=== PATIENT | female | born 1985 | race Two or more races ===

== ENCOUNTER 2024-03-31 17:25 | Emergency (ER) | payer MEDICAID, SELFPAY ==
[2024-03-31 17:34] VITALS: BP 153/92; PULSE 90; RESP 18; TEMP 36.3; O2SAT 98; BMI 45.5
--- NOTE | 2024-03-31 17:38 | XR_ITS ---
Examination: CT cervical spine without contrast 2-D sagittal reconstructions 2-D coronal reconstructions 3-D reconstructions. Exam date and time:March 31, 2024 1949 hrs. Indications: Patient fell today with injury to the neck, neck pain CTDI:vol (mGy) 9.68 DLP: (mGycm) 201 Technique: Multiple 2 mm axial sections of the cervical spine have been obtained. The coronal and sagittal reconstructions have been obtained. 3-D reconstructions have been obtained. Low dose protocols were performed. One or more of the following dose reduction techniques were used; automated exposure control, adjustment of the mA and/or KV according to patient size, use of iterative reconstruction technique. 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
--- NOTE | 2024-03-31 17:38 | XR_ITS ---
Examination: CT brain head without contrast. 2-D sagittal coronal reconstructions Date and time of exam:March 31, 2024 1949 hrs. Indications: Patient fell today with injury to the head, head pain Comparison: February 01, 2023 CTDI: vol (mGy):51.8 DLP: (mGycm):950 Technique: Multiple CT axial sections of the brain have been obtained, 5 mm slice thickness. Contrast has not been administered. 2-D sagittal, coronal reconstructions have been obtained Low dose protocols were performed. One or more of the following dose reduction techniques were used; automated exposure control, adjustment of the mA and/or KV according to patient size, use of iterative reconstruction technique. Findings: No significant ventricular enlargement. Intra-axial or extra-axial hemorrhage density is not seen. No mass effect or midline shift Basal cisterns are not remarkable. Fourth ventricle is midline. Cranial vault intact. Impression: Negative for acute hemorrhage, mass effect or midline shift
--- NOTE | 2024-03-31 17:38 | PD.EDRME ---
Rapid Medical Screening Exam RME Arrival date/time: 03/31/24 17:25 38-year-old female presents the emergency department today stating she fell yesterday and hit the cement left side of her head patient reports head and neck pain at this time Chief Complaint: Fall Time Seen by Provider: 03/31/24 17:36 Vital signs: Vital Signs Temperature 97.4 F 03/31/24 17:34 Pulse Rate 90 03/31/24 17:34 Respiratory Rate 18 03/31/24 17:34 Blood Pressure 153/92 H 03/31/24 17:34 Pulse Oximetry (%) 98 03/31/24 17:34 Oxygen Delivery Method Room Air 03/31/24 17:34
--- NOTE | 2024-03-31 22:34 | PD.EDFALL ---
ED Fall Injury RME/HPI General Chief Complaint: Fall Stated Complaint: Fall hit her head 2 days ago Time Seen by Provider: 03/31/24 17:36 Arrival date/time: 03/31/24 17:25 RME / HPI RME / HPI Narrative: 38-year-old female presents the emergency department today stating she fell from a 1 step stool yesterday and hit the cement left side of her head patient reports head and neck pain at this time. Severity of symptoms mild. Denies any LOC. Denies any other complaints. Related Data Previous Rx's ?Medication ?Instructions ?Recorded cyclobenzaprine 10 mg tablet 10 mg PO HS #10 tabs 02/01/23 meclizine 25 mg tablet 25 mg PO BID PRN dizziness #14 tabs 02/01/23 Allergies Allergy/AdvReac Type Severity Reaction Status Date / Time No Known Allergies Allergy Verified 02/01/23 12:41 Review of Systems Review of Systems Narrative Review of Systems: Review of system reviewed and within normal limits except mentioned in HPI ED Exam Narrative Physical exam: VITAL SIGNS: Reviewed. GENERAL APPEARANCE: Alert and interactive, follows commands, no acute distress, HEAD AND FACE: Tenderness to the left scalp temporal area ENT: PERRL, pink conjunctivitis, eyelid no trauma, Mucous membrane moist. NECK: Supple, nontender, no nuchal rigidity. CHEST: No tenderness, no crepitus, no paradoxical movement, no retractions. LUNGS: Clear, well ventilated, symmetric, no rales, no wheezing, no ronchi, no stridor, good breath sounds bilaterally. HEART: Regular rate, regular rhythm, no murmur, no gallops. ABDOMEN: Soft, positive bowel sounds, nondistended, no guarding, nontender, no rebound, no masses, RECTAL: Deferred. GENITAL: Deferred. NEUROLOGICAL: Gross motor function intact sensory function intact, Appropriate for age. MUSCULOSKELETAL: low back nontender, full range of motion. EXTREMITIES: Nontender, full range of motion. SKIN: Color pink, dry, no rash, no lacerations, no abrasions, no contusions. LYMPHATICS: Deferred. Course Quality Measures none Orders Category Date Time Status CT cervical spine wo con Stat Exams 03/31/24 17:[address] head/brain wo con Stat Exams 03/31/24 17:38 Completed Vital Signs Vital signs: Vital Signs Temperature 97.4 F 03/31/24 17:34 Pulse Rate 90 03/31/24 17:34 Respiratory Rate 18 03/31/24 17:34 Blood Pressure 153/92 H 03/31/24 17:34 Pulse Oximetry (%) 98 03/31/24 17:34 Oxygen Delivery Method Room Air 03/31/24 17:34 Fall MDM Narrative MDM Narrative:: CT scan of the neck came back unremarkable. CT scan of the head came back unremarkable. Results discussed with the patient. Patient data External records reviewed:: None Clinical information provided by:: patient Social determinants that could affect healthcare access:: none Patient has the following chronic illnesses:: None How is presenting disease/condition affected by chronic disease/condition?: no chronic disease Evaluation data The following diagnostics were reviewed and interpreted by me:: radiology exam(s) Lab and/or radiology exams considered but not ordered:: None Interpretation Summary: CT scan of the head came back unremarkable. CT scan of the neck came back unremarkable. Medications / Prescriptions Medications or Prescriptions considered but not ordered:: None Medication administrations:: None Consultations Consultation(s) initiated? (list below): No Diagnosis Fall Differential Diagnosis: other (Scalp contusion, status post fall, intracranial bleed) Most likely diagnosis given after review of the tests above:: Scalp contusion, left temporal area status post fall Admission Indicated Admission indicated?: not indicated Explain why admission is indicated or not indicated:: Stable discharge Admission Request Was there a request for admission?: No Disposition Plan Disposition Plan: Discharge Discharge Attestation Discharge Attestation: The patient was given an opportunity to ask questions and understood the discharge instructions. Discharge instructions specifically effects, indications for sooner follow up or return to the emergency department, and the expected course of current diagnosis. Patient condition: Stable Discharge Plan Plan Patient Disposition: HOME (Self Care) Disposition Comment: stable Prescriptions/Referrals Prescriptions/Med Rec: No Action meclizine 25 mg tablet 25 mg PO BID PRN (Reason: dizziness) Qty: 14 0RF cyclobenzaprine 10 mg tablet 10 mg PO HS Qty: 10 0RF Referrals: Randolph Piña MD [Primary Care Provider] - In 1 week Problem List Clinical Impression: Fall, Contusion of scalp Patient/Caregiver Discharge Instructions Discharge Activity: activity as tolerated Education Materials: ED Scalp Contusion Additional Instructions: Thank you for the opportunity for serving you today. You are stable for discharged . You are advised to: Follow-up with your PCP in 1 to 2 days Return to ED for worsening of symptoms Increase oral fluids Take over the counter Tylenol or Motrin as needed Print Language: Omani Stand Alone Forms: Mandy Award Info., Patient Portal Info Letter PA/CAPPER MACHINE OPERATOR Supervising Physician MINDY/CAPPER MACHINE OPERATOR Supervising Physician: MD Randi
== END 2024-03-31 22:40 | disposition home or self-care (01) ==
PROVIDERS: Emergency Provider Emergency Medicine; PCP Family Medicine
DX: S00.03XA Contusion of scalp, initial encounter (principal); S19.9XXA Unspecified injury of neck, initial encounter; W10.9XXA Fall (on) (from) unspecified stairs and steps, initial encounter
CPT/HCPCS: 70450; 72125; 99284

== ENCOUNTER 2024-06-30 16:03 | Emergency (ER) | payer MEDICAID, SELFPAY ==
[2024-06-30 16:04] VITALS: BMI 41.1
[2024-06-30 16:54] VITALS: BP 151/81; PULSE 80; RESP 18; TEMP 36.9; O2SAT 99
--- NOTE | 2024-06-30 17:02 | PD.EDRME ---
Rapid Medical Screening Exam RME Arrival date/time: 06/30/24 16:03 38-year-old female presents the emergency department with complaints of dizziness x 1 day. Patient states she feels the room spinning. I have greeted and performed a focused initial assessment of this patient. Initial appropriate labs ordered at this time. A comprehensive ED assessment and evaluation of the patient and analysis of all test and completion of medical decision making process will be conducted by additional ED provider. Chief Complaint: Dizziness Time Seen by Provider: 06/30/24 16:42 Vital signs: Vital Signs Temperature 98.5 F 06/30/24 16:54 Pulse Rate 80 06/30/24 16:54 Respiratory Rate 18 06/30/24 16:54 Blood Pressure 151/81 H 06/30/24 16:54 Pulse Oximetry (%) 99 06/30/24 16:54 Oxygen Delivery Method Room Air 06/30/24 16:54
[2024-06-30] MEDS: MECLIZINE HCL 25 MG TABLET PO (17:07)
[2024-06-30 17:37] LABS: Collection Type, Urine Clean Catch
[2024-06-30 17:39] LABS: Basophils # (Auto) 0.1 Thou/mm3 (0.0-0.2); Basophils % (Auto) 1 % (0-2.5); Eosinophils # (Auto) 0.2 Thou/mm3 (0.0-0.5); Eosinophils % (Auto) 2 % (0-10); Hematocrit 40.9 % (36.0-46.0); Hemoglobin 13.6 g/dL (12.0-16.0); Immature Granulocytes % (Auto) 0 % (0-0); Immature Granulocytes Auto 0.04 Thou/mm3 (0.00-0.00); Lymphocytes # (Auto) 3.1 Thou/mm3 (1.0-4.8); Lymphocytes % (Auto) 25 % (10-50); Mean Corpuscular HGB Conc 33.3 g/dl (31.0-37.0); Mean Corpuscular Hemoglobin 31.8 pg (25.0-35.0); Mean Corpuscular Volume 96 fL (80-100); Monocytes # (Auto) 0.5 Thou/mm3 (0.0-0.8); Monocytes % (Auto) 4 % (0-12); Neutrophils # (Auto) 8.7 Thou/mm3 (1.8-7.7); Neutrophils % (Auto) 69 % (37-80); Nucleated Red Blood Cell % 0 /100 WBC (0); Platelet Count 332 Thou/mm3 (140-440); RDW Standard Deviation 43.5 fL (36.4-46.3); Red Blood Count 4.28 Miln/mm3 (4.00-5.20); White Blood Count 12.7 Thou/mm3 (3.6-11.0)
[2024-06-30 17:43] LABS: Bilirubin,Urine Negative (Negative); Blood,Urine Negative (Negative); Clarity,Urine Clear (Clear/Hazy); Color,Urine Lt-Yellow (Lt Yel-Yel); Glucose, Urine Negative (Negative); Ketones,Urine Negative (Negative); Leukocyte Esterase,Urine Positive (Negative); Nitrite,Urine Negative (Negative); Protein,Urine Negative (Neg - Trace); RBC,Urine 1 /hpf (0-3); Specific Gravity,Urine 1.017 (1.001-1.035); Squamous Epithelial Cell,Urine 4 /hpf (0-5); Urobilinogen,Urine Negative mg/dL (0.0-1.0); WBC,Urine 4 /hpf (0-5)
[2024-06-30 17:57] LABS: Alanine Aminotransferase 35 U/L (10-49); Albumin, Serum 4.4 gm/dL (3.5-5.0); Albumin/Globulin Ratio 1.2 (1.2-2.2); Alkaline Phosphatase 108 U/L (46-116); Anion Gap 9 (7-16); Aspartate Amino Transferase 19 U/L (0-34); BUN/Creatinine Ratio 14 Ratio (12-20); Bilirubin,Total 0.4 mg/dL (0.3-1.2); Blood Urea Nitrogen 14 mg/dL (9-23); Calcium 9.6 mg/dL (8.3-10.6); Calcium (Corrected) 9.6 mg/dL (8.5-10.1); Carbon Dioxide 25.5 mMol/L (20.0-31.0); Chloride 103 mMol/L (98-107); Estimated Creatinine Clearance 93.8 mL/min (>60); Globulin 3.6 gm/dL (2.3-3.5); Glucose 109 mg/dL (74-106); Osmolality,Calculated 275 (275-295); Potassium 3.8 mMol/L (3.4-5.1); Sodium 137 mMol/L (136-145); eGFR > 60 See Note
[2024-06-30 18:00] LABS: HCG Qualitative,Urine Negative
[2024-06-30 19:44] VITALS: BP 145/98; PULSE 81; RESP 18; TEMP 36.6; O2SAT 99
--- NOTE | 2024-06-30 20:01 | EDNOTE_ITS ---
ED Dizzyness RME/HPI General Chief Complaint: Dizziness Stated Complaint: DIZZY X4HR Time Seen by Provider: 06/30/24 16:42 Arrival date/time: 06/30/24 16:03 RME / HPI RME / HPI Narrative: 38-year-old female patient came in for evaluation regarding dizziness. Onset of symptoms earlier today as dizziness, described as everything spinning, severity moderate associated with blurry vision. Patient denies any headache denies any slurring speech denies any vomiting denies any fever denies any neck pain denies any other complaints patient also. Denies any head trauma or fall. Related Data Previous Rx's ?Medication ?Instructions ?Recorded cyclobenzaprine 10 mg tablet 10 mg PO HS #10 tabs 01/10 08/31 meclizine 25 mg tablet 25 mg PO BID PRN dizziness # 14 tabs 02/01/23 Allergies Allergy/AdvReac Type Severity Reaction Status Date / Time No Known Allergies Allergy Verified 06/30/24 16:06 Review of Systems Review of Systems Narrative Review of Systems: Review of system reviewed and within normal limits except mentioned in HPI ED Exam Narrative Physical exam: VITAL SIGNS: Reviewed. GENERAL APPEARANCE: Alert and interactive, follows commands, no acute distress, HEAD AND FACE: Non-traumatic. ENT: PERRL, pink conjunctivitis, eyelid no trauma, Mucous membrane moist. NECK: Supple, nontender, no nuchal rigidity. CHEST: No tenderness, no crepitus, no paradoxical movement, no retractions. LUNGS: Clear, well ventilated, symmetric, no rales, no wheezing, no ronchi, no stridor, good breath sounds bilaterally. HEART: Regular rate, regular rhythm, no murmur, no gallops. ABDOMEN: Soft, positive bowel sounds, nondistended, no guarding, nontender, no rebound, no masses, RECTAL: Deferred. GENITAL: Deferred. NEUROLOGICAL: Gross motor function intact sensory function intact, Appropriate for age. Negative Romberg's test MUSCULOSKELETAL: low back nontender, full range of motion. EXTREMITIES: Nontender, full range of motion. SKIN: Color pink, dry, no rash, no lacerations, no abrasions, no contusions. LYMPHATICS: Deferred. Course Quality Measures none Orders Category Date Time Status CT head/brain wo con Stat Exams 06/30/24 20:00 Ordered CBC Stat Lab 06/30/24 17:20 Completed CMP [Comprehensive Metabolic Panel] Stat Lab 06/30/24 17:20 Completed HCG Qualitative,Urine Stat Lab 06/30/24 17:26 Completed Urinalysis Stat Lab 06/30/24 17:26 Completed Meclizine HCl [Antivert] Med 06/30/24 17:01 Discontinued 25 mg PO X1 ONE Vital Signs Vital signs: Vital Signs Temperature 98.5 F 06/30/24 16:54 Pulse Rate 80 06/30/24 16:54 Respiratory Rate 18 06/30/24 16:54 Blood Pressure 151/81 H 06/30/24 16:54 Pulse Oximetry (%) 99 06/30/24 16:54 Oxygen Delivery Method Room Air 06/30/24 16:54 Dizziness MDM Narrative MDM Narrative:: Elopement Patient data External records reviewed:: None Clinical information provided by:: patient Social determinants that could affect healthcare access:: none Patient has the following chronic illnesses:: None How is presenting disease/condition affected by chronic disease/condition?: no chronic disease Evaluation data The following diagnostics were reviewed and interpreted by me:: radiology exam(s) Lab and/or radiology exams considered but not ordered:: None Interpretation Summary: Elopement Medications / Prescriptions Medications or Prescriptions considered but not ordered:: None Medication administrations:: Medication Administration History Discontinued Medications Meclizine HCl (Meclizine Hcl 25 Mg Tablet) 25 mg PO X1 ONE Stop: 06/30/24 17:02 Last Admin: 06/30/24 17:07 Dose: 25 mg Documented By: OA Meclizine Consultations Consultation(s) initiated? (list below): No Diagnosis Dizziness Differential Diagnosis: benign paroxysmal positional vertigo and orthostatic hypotension Most likely diagnosis given after review of the tests above:: Dizziness Admission Indicated Admission indicated?: not indicated Explain why admission is indicated or not indicated:: Elopement Admission Request Was there a request for admission?: No Disposition Plan Disposition Plan: other (specify) Discharge Attestation Discharge Attestation: Elopement Discharge Plan Plan Patient Disposition: Elopement Prescriptions/Referrals Prescriptions/Med Rec: No Action meclizine 25 mg tablet 25 mg PO BID PRN (Reason: dizziness) Qty: 14 0RF cyclobenzaprine 10 mg tablet 10 mg PO HS Qty: 10 0RF Referrals: No Primary/Family,Physician [Primary Care Provider] - In 1 week Problem List Clinical Impression: Dizziness Patient/Caregiver Discharge Instructions Print Language: Angolan
--- NOTE | 2024-06-30 21:44 | PC.NURSE ---
Pt. NA in lobby and called by this nurse at home. Pt is at home and states her ride was waiting for her.
== END 2024-06-30 21:59 | disposition left against medical advice (07) ==
PROVIDERS: Nurse Practitioner Primary Care; Emergency Provider Emergency Medicine
DX: R42 Dizziness and giddiness (principal); Z53.29 Procedure and treatment not carried out because of patient's decision for other reasons
CPT/HCPCS: 36415; 80053; 81001; 81025; 85025; 99281; A9270

== ENCOUNTER 2025-01-01 19:50 | Emergency (ER) | payer MEDICAID, SELFPAY ==
[2025-01-01 19:52] VITALS: BMI 38.7
[2025-01-01 20:58] VITALS: BP 153/91; PULSE 87; RESP 18; TEMP 36.6; O2SAT 98
--- NOTE | 2025-01-01 21:04 | XR_ITS ---
Examination: Foot, left, 3 views Technique: AP, oblique, lateral views foot, 3 views Date and time of exam: January 01, 2025 2113 hours INDICATIONS: Injured the foot today, foot pain. No acute fracture. No dislocation. No foreign body IMPRESSION: No acute fracture
--- NOTE | 2025-01-01 21:04 | XR_ITS ---
EXAMINATION: Ankle, left 2 views . Technique: AP lateral left ankle 2 views Date and time: January 01, 2025 2116 hours INDICATIONS: Injured ankle today, ankle pain. FINDINGS: No fracture or dislocation. No foreign body IMPRESSION: No fracture or dislocation.
--- NOTE | 2025-01-01 22:32 | PD.EDANKLE ---
Lower Extremity Injury RME/HPI General Chief Complaint: Extremity Injury, Lower Stated Complaint: LEFT LEG INJURY Time Seen by Provider: 01/01/25 20:09 Arrival date/time: 01/01/25 19:50 This is a case of 39-year-old female with no medical history came in in the emergency room due to pain on the left ankle and left foot history of present illness started today when the patient was walking and accidentally stepped on a rock causing her to twisted her left ankle and foot and sustained pain and swelling worsening of the symptoms this patient decided to sought consult here in the emergency room Limitations: no limitations Related Data Previous Rx's ?Medication ?Instructions ?Recorded cyclobenzaprine 10 mg tablet 10 mg PO HS #10 tabs 02/01/23 meclizine 25 mg tablet 25 mg PO BID PRN dizziness #14 tabs 02/01/23 ibuprofen 800 mg tablet 800 mg PO Q8H PRN pain #20 tabs 01/01/25 Allergies Allergy/AdvReac Type Severity Reaction Status Date / Time No Known Allergies Allergy Verified 01/01/25 19:51 Review of Systems Review of Systems Systems Reviewed: All systems reviewed, normal except as documented Constitutional Constitutional: Reports system reviewed and no additional complaints, except as documented, Reports as per HPI, Denies chills and Denies fever(s) Cardiovascular Cardiovascular: Reports system reviewed and no additional complaints, except as documented and Reports as per HPI Respiratory Respiratory: Reports system reviewed and no additional complaints, except as documented and Reports as per HPI Gastrointestinal Gastrointestinal: Reports system reviewed and no additional complaints, except as documented and Reports as per HPI Musculoskeletal Musculoskeletal: Reports system reviewed and no additional complaints, except as documented, Reports as per HPI and Reports other (Left ankle and left foot pain) Neurologic Neurologic: Reports system reviewed and no additional complaints, except as documented and Reports as per HPI Past Medical History Past Medical History NEUROLOGIC: Negative Neurological Disorders or Seizures CARDIAC: Positive Hypertension; Negative Cardiac Disorders or Congestive Heart Failure RESPIRATORY: Negative Chronic Obstructive Pulmonary Disease (COPD) GASTROINTESTINAL: Positive Obesity; Negative Gastrointestinal Disorders, Hepatitis or Colorectal Cancer GENITOURINARY: Negative Genitourinary Disorders, Renal Disease or Prostate Cancer REPRODUCTIVE: Positive Previous Pregnancies; Negative Breast Cancer, Endometriosis, Genital Herpes, Gonorrhea, Pelvic Inflammatory Disease, Syphilis, Testicular Cancer or Uterine Prolapse MUSCULOSKELETAL: Negative Musculoskeletal Disorders or Bone Cancer ENDOCRINE: Negative Endocrine Disorders, Diabetes Mellitus Type 1 or Diabetes Mellitus Type 2 HEMATOLOGIC: Negative Blood Disorders PSYCHO/SOCIAL: Negative Depression or Anxiety OTHER HISTORY: Positive Chicken Pox (AT AGE 9); Negative Hospitalization, Autoimmune Disease, Down Syndrome, Developmental Delay, Shingles, Falls, Blood Transfusions, Anesthesia Reactions, MRSA, VRSA, Vancomycin-Resistant Enterococci, Human Immunodeficiency Virus (HIV), Measles, Mumps, Rubella (Faroese Measles), Pertussis, Clostridium Difficile, Cancer, Breast Cancer, Cervical Cancer, Colorectal Cancer, Lung Cancer, Ovarian Cancer, Prostate Cancer or Testicular Cancer Family History FAMILY HISTORY: Negative Family Psychiatric Problems, Family Respiratory Disorders, Family Cardiac Disorders, Family Gastrointestinal Problems, Family Cancer, Family Surgery or Family Anesthesia Reaction Surgical History SURGICAL: Negative Section Social History SMOKING STATUS: Current every day smoker SECOND HAND EXPOSURE: No ED Exam General Limitations: Present no limitations General appearance: Present alert, in no apparent distress and other (Patient is awake alert oriented not in distress nontoxic looking well-hydrated well-nourished) Head Head exam: Present atraumatic, normocephalic and normal inspection Eye Eye exam: Present normal appearance, PERRL and EOMI ENT ENT exam: Present normal exam, normal oropharynx and mucous membranes moist Neck Neck exam: Present normal inspection, full ROM and trachea midline; Absent tenderness, meningismus or lymphadenopathy Chest Chest inspection: Present normal inspection and symmetric chest wall rise; Absent tenderness Respiratory Respiratory exam: Present normal lung sounds bilaterally; Absent respiratory distress, wheezes, stridor, accessory muscle use or prolonged expiratory phase Cardiovascular Cardiovascular exam: Present regular rate, normal rhythm and normal heart sounds Abdominal Exam Abdominal exam: Present soft and normal bowel sounds; Absent distention, tenderness, guarding, rebound, rigidity, diminished bowel sounds, hyperactive bowel sounds or hypoactive bowel sounds Extremities Exam Extremities exam: Present normal inspection and full ROM Expanded Lower Extremity Exam Lower leg exam: Present normal inspection and full ROM; Absent tenderness or swelling Ankle exam: Present tenderness, swelling and other (ROM limited due to pain noted moderate tenderness on the left lateral ankle and foot no crepitation no deformity no redness no cellulitis negative Mahajan signs negative Homans signs no calf tenderness); Absent abrasion, laceration, ecchymosis, deformity, crepitus, dislocation, erythema, tenderness over talofibular lig or anterior draw sign Foot/toe exam: Present tenderness, swelling and other (Moderate tenderness on the dorsal aspect of the left dorsal foot ROM limited due to pain neurovascular intact); Absent abrasion, laceration, ecchymosis, deformity, crepitus, dislocation, erythema, amputation, puncture wound, foreign body, calcaneal tenderness, tenderness at base of 5th metatarsal, nail avulsion or subungual hematoma Back Exam Back exam: Present normal inspection and full ROM Neurological Exam Neurological exam: Present alert, oriented X3, CN II-XII intact, reflexes normal and other (Gait is unstable due to pain on the left foot and left ankle); Absent normal gait or motor sensory deficit Psychiatric Psychiatric exam: Present normal affect and normal mood Skin Skin exam: Present warm, dry, intact and normal color Course Quality Measures none Orders Category Date Time Status XR ankle LT 2V Stat Exams 01/01/25 21:04 Completed XR foot comp LT min 3V Stat Exams 01/01/25 21:04 Completed Ibuprofen Tab [Motrin Tab] Med 01/01/25 22:29 Once 800 mg PO X1 ONE Vital Signs Vital signs: Vital Signs Temperature 98 F 01/01/25 20:58 Pulse Rate 87 01/01/25 20:58 Respiratory Rate 18 01/01/25 20:58 Blood Pressure 153/91 H 01/01/25 20:58 Pulse Oximetry (%) 98 01/01/25 20:58 Oxygen Delivery Method Room Air 01/01/25 20:58 Oxygen saturation is 98% in room air normal Extremity Injury, Lower MDM Narrative MDM Narrative:: This is a case of 39-year-old female with no medical history came in in the emergency room due to pain on the left ankle and left foot history of present illness started today when the patient was walking and accidentally stepped on a rock causing her to twisted her left ankle and foot and sustained pain and swelling worsening of the symptoms this patient decided to sought consult here in the emergency room physical examination patient is awake alert oriented not in distress nontoxic looking noted moderate tenderness in the left foot left ankle ROM limited due to pain neurovascular intact x-ray showed no fracture no dislocation Aircast was applied tolerated well neurovascular intact RICE treatment will continue by the patient at home they will follow-up with PCP in 2 days for reevaluation worsening symptoms or any emergent concern return precaution in the ER was advised Patient was discharged with comfortable condition walking with stable gait. Patient verbalized no further complains explained diagnosis and answered patient question. Patient is comfortable with the proposed management plan including the need to follow up with his/her primary care physician and any specialist if applicable Discussed patient for any urgent condition or worsening sx, He/She needed to go to emergency room immediately or call 911. Patient acknowledge the responsibility to follow up as instructed and to monitor her/his symptoms. For any persistence of the symptoms for more than 3-5 days return precaution advised. Discussed the result of the test and was given printed discharge instruction Patient data [place] [facility] [place] Clinical information provided by:: patient and family Social determinants that could affect healthcare access:: none Patient has the following chronic illnesses:: None How is presenting disease/condition affected by chronic disease/condition?: no chronic disease Evaluation data The following diagnostics were reviewed and interpreted by me:: radiology exam(s) Lab and/or radiology exams considered but not ordered:: Reviewed Interpretation Summary: Reviewed Medications / Prescriptions Medications or Prescriptions considered but not ordered:: Given Medication administrations:: Medication Administration History Ibuprofen (Ibuprofen Tab 400 Mg Tablet) 800 mg PO X1 ONE Stop: 01/01/25 22:30 Given Consultations Consultation(s) initiated? (list below): No Diagnosis Extremity Injury, Lower Differential Diagnosis: ankle sprain and strain and ankle fracture Most likely diagnosis given after review of the tests above:: Ankle sprain foot sprain Admission Indicated Admission indicated?: not indicated Explain why admission is indicated or not indicated:: Not indicated Admission Request Was there a request for admission?: No Admission Attestation Admission request attestation: Not indicated Disposition Plan Disposition Plan: Discharge Discharge Attestation Discharge Attestation: The patient and all family members were given an opportunity to ask questions and understood the discharge instructions. Discharge instructions specifically effects, indications for sooner follow up or return to the emergency department, and the expected course of current diagnosis. Patient condition: Stable Discharge Plan Plan Patient Disposition: HOME (Self Care) Patient condition on transfer: Stable Prescriptions/Referrals Prescriptions/Med Rec: New ibuprofen 800 mg tablet 800 mg PO Q8H PRN (Reason: pain) Qty: 20 0RF No Action meclizine 25 mg tablet 25 mg PO BID PRN (Reason: dizziness) Qty: 14 0RF cyclobenzaprine 10 mg tablet 10 mg PO HS Qty: 10 0RF Referrals: Randolph Piña MD [Primary Care Provider] - In 1 week Problem List Clinical Impression: Ankle sprain, Foot sprain Patient/Caregiver Discharge Instructions Education Materials: Treating?Strains and Sprains, ED EDER Wrap, ED RICE Additional Instructions: Follow-up with your primary care physician in 2 days for reevaluation and if symptoms persist for more than 5 to 7 days needs to see an Ortho for for possible MRI to ruled out any ligament injury worsening symptoms or any emergent concerns such as numbness weakness tingling sensation call 911 or go to the nearest emergency room ice pack every 2 hours for 20 minutes for 24 hours then alternate with warm compress elevate to decrease swelling no weightbearing on the left ankle and left foot keep the Aircast in place until cleared by your primary care physician Print Language: Nicaraguan Stand Alone Forms: Mandy Award Info., Patient Portal Info Letter PA/ARCHITECTURE DRAFTER Supervising Physician PA/CORRINE Supervising Physician: Dr. Bolaños
[2025-01-01] MEDS: IBUPROFEN TAB 400 MG TABLET 800 MG PO (22:54)
[2025-01-01 22:55] VITALS: BP 142/80; PULSE 82; RESP 18; TEMP 37; O2SAT 96
== END 2025-01-01 22:57 | disposition home or self-care (01) ==
PROVIDERS: Emergency Provider Emergency Medicine; PCP Family Medicine
DX: S93.402A Sprain of unspecified ligament of left ankle, initial encounter (principal); S93.602A Unspecified sprain of left foot, initial encounter; X50.1XXA Overexertion from prolonged static or awkward postures, initial encounter; Y93.01 Activity, walking, marching and hiking
CPT/HCPCS: 73600; 73630; 99283; A9270